=== PATIENT | female | born 1950 | race Caucasian/White ===

== ENCOUNTER 2016-04-19 12:31 | Inpatient (IN) | payer OTHER, MEDICARE ==
[~2016-04-19] VITALS: Ht 165.1 cm; Wt 53.1 kg
[2016-04-19 13:51] LABS: BASOPHIL 0.2 % (0-2); EOSINOPHIL 0 % (0-7); HCT 26.3 % (37.0-47.0); HGB 8.3 g/dl (12.5-16.0); MCH 26.6 pg (25.0-31.0); MCHC 31.6 g/dL (32.0-36.0); MCV 84.3 fL (78.0-100.0); MONOCYTE 10.4 % (0-12); MPV 9.6 fL (6.0-9.5); NEUTROPHIL 83.4 % (41-80); PLT 735 K/uL (150-400); RBC 3.12 M/uL (4.20-5.40); RDW 13.5 % (11.5-14.0)
[2016-04-19 13:59] LABS: INR 3.5 (0.9-1.2); PROTHROMBIN TIME 34.3 SECONDS (11.7-14.0)
[2016-04-19 14:00] LABS: PTT 64.9 SECONDS (23.2-31.4)
[2016-04-19 14:08] LABS: CREATININE 1.6 mg/dL (0.5-1.0)
[2016-04-19 14:09] LABS: WBC 24.4 K/uL (4.0-10.5)
[2016-04-19 14:14] LABS: BILIRUBIN NEGATIVE (NEGATIVE); BLOOD NEGATIVE Ery/uL (NEGATIVE); CLARITY CLEAR (CLEAR); COLOR YELLOW (YELLOW); GLUCOSE (U) NORMAL (NORMAL); KETONE (U) NEGATIVE (NEGATIVE); LEUKOCYTES NEGATIVE Leu/uL (NEGATIVE); NITRITE NEGATIVE (NEGATIVE); PROTEIN NEGATIVE (NEGATIVE); SPECIFIC GRAVITY 1.025 (1.001-1.030)
[2016-04-19 15:32] LABS: LACTIC ACID 4.3 mmol/L (0.5-2.2)
[2016-04-19 22:32] LABS: CKMB 1.23 ng/mL (0.97-4.94); TROPONIN T < 0.010 ng/mL
[2016-04-20 04:17] LABS: TROPONIN T < 0.010 ng/mL
[2016-04-20 06:43] LABS: HCT 27.9 % (37.0-47.0); HGB 8.8 g/dl (12.5-16.0); MCH 26.7 pg (25.0-31.0); MCHC 31.5 g/dL (32.0-36.0); MCV 84.8 fL (78.0-100.0); MPV 9.5 fL (6.0-9.5); RBC 3.29 M/uL (4.20-5.40); RDW 13.7 % (11.5-14.0); WBC 18.7 K/uL (4.0-10.5)
[2016-04-20 06:55] LABS: INR 3.42 (0.9-1.2); PROTHROMBIN TIME 33.7 SECONDS (11.7-14.0)
[2016-04-20 06:56] LABS: PTT 56.4 SECONDS (23.2-31.4)
[2016-04-20 07:00] LABS: ALBUMIN 2.8 g/dL (3.4-4.8); BILIRUBIN - TOTAL 0.3 mg/dL (0.1-1.0); CREATININE 0.9 mg/dL (0.5-1.0); GLOBULIN (CALCULATION) 3.3 g/dL (2.2-4.2); TOTAL PROTEIN 6.1 g/dL (6.4-8.3)
[2016-04-20 11:03] LABS: TROPONIN T < 0.010 ng/mL
[2016-04-21 05:13] LABS: MCH 27.2 pg (25.0-31.0); MCHC 32.2 g/dL (32.0-36.0); MCV 84.4 fL (78.0-100.0); MPV 9.4 fL (6.0-9.5); RBC 3.2 M/uL (4.20-5.40); RDW 13.8 % (11.5-14.0); WBC 14.6 K/uL (4.0-10.5)
[2016-04-21 05:14] LABS: HGB 8.7 g/dl (12.5-16.0)
[2016-04-21 05:21] LABS: INR 2.86 (0.9-1.2); PROTHROMBIN TIME 29.3 SECONDS (11.7-14.0)
[2016-04-21 05:30] LABS: CREATININE 0.8 mg/dL (0.5-1.0); POTASSIUM 4.2 mmol/L (3.5-5.1)
[2016-04-21] MEDS ORDERED: COUMADIN10 MG PO (11:18)
[2016-04-21] MEDS ORDERED: CATAPRES0.1 MG PO (11:19)
[2016-04-21] MEDS ORDERED: FEOSOL325 MG PO (11:19)
[2016-04-21] MEDS ORDERED: HALDOL1 MG PO (11:20)
[2016-04-21] MEDS ORDERED: SYNTHROID125 MCG PO (11:21)
[2016-04-21] MEDS ORDERED: CLARITIN10 MG PO (11:21)
[2016-04-21] MEDS ORDERED: METFORMIN HCL500 MG PO (11:22)
[2016-04-21] MEDS ORDERED: ATIVAN0.5 MG PO (11:22)
[2016-04-21] MEDS ORDERED: ARTANE2 MG PO (11:22)
[2016-04-21] MEDS ORDERED: ACETAMINOPHEN325 MG PO (11:23)
[2016-04-21] MEDS ORDERED: VIBRAMYCIN100 M1 PO (11:24)
[2016-04-21] MEDS ORDERED: AUGMENTIN250 MG PO (11:24)
[2016-08-16] MEDS ORDERED: MAG-OXIDE 400M400 MG PO (11:24)
[2016-08-16] MEDS ORDERED: NIFEREX150 MG PO (11:24)
== END 2016-04-21 11:57 | DRG 871 ==
LOC: FER 12:31 → FICU 17:39 → FTCU 17:39 → FICU 17:45 → FMS 04-20 14:28
PROVIDERS: Emergency Medicine; ADMIT Internal Medicine
PROC: 30233N1 Transfusion of Nonautologous Red Blood Cells into Peripheral Vein, Percutaneous Approach (ICD-10-PCS; principal; 2016-04-19)
DX: A41.9 Sepsis, unspecified organism (principal); J18.9 Pneumonia, unspecified organism; N17.9 Acute kidney failure, unspecified; E87.2 Acidosis; D68.9 Coagulation defect, unspecified; F03.90 Unspecified dementia, unspecified severity, without behavioral disturbance, psychotic disturbance, mood disturbance, and anxiety; R65.20 Severe sepsis without septic shock; Z79.01 Long term (current) use of anticoagulants; I10 Essential (primary) hypertension; Z86.718 Personal history of other venous thrombosis and embolism; E03.9 Hypothyroidism, unspecified; E86.1 Hypovolemia
CPT/HCPCS: 12051; 36415; 36430; 70450; 71010; 72170; 80048; 80053; 81003; 82533; 82550; 82553; 82962; 83605; 84484; 85025; 85610; 85730; 86850; 86900; 86901; 86922; 87040; 87088; 90471; 90715; 93005; 97116; 97163; 97167; 97530; 97530-GP; 97535; C9113; J0692; J2543; J3370; P9016

== ENCOUNTER 2016-06-30 15:00 | Emergency (ER) | payer MEDICARE, OTHER ==
[~2016-06-30 15:00] MED LIST: ACETAMINOPHEN325 MG PO; ARTANE2 MG PO; ATIVAN0.5 MG PO; AUGMENTIN250 MG PO; CATAPRES0.1 MG PO; CLARITIN10 MG PO; COUMADIN10 MG PO; FEOSOL325 MG PO; HALDOL1 MG PO; METFORMIN HCL500 MG PO; SYNTHROID125 MCG PO; VIBRAMYCIN100 M1 PO
[2016-06-30 16:40] LABS: BASOPHIL 0.4 % (0-2); EOSINOPHIL 2.5 % (0-7); HCT 26.8 % (37.0-47.0); HGB 8.5 g/dl (12.5-16.0); LYMPHOCYTE 14.2 % (15-48); MCH 27.6 pg (25.0-31.0); MCHC 31.7 g/dL (32.0-36.0); MONOCYTE 8.5 % (0-12); MPV 9.9 fL (6.0-9.5); NEUTROPHIL 74.4 % (41-80); PLT 801 K/uL (150-400); RBC 3.08 M/uL (4.20-5.40)
[2016-06-30 16:42] LABS: BILIRUBIN NEGATIVE (NEGATIVE); BLOOD NEGATIVE Ery/uL (NEGATIVE); CLARITY CLEAR (CLEAR); COLOR YELLOW (YELLOW); GLUCOSE (U) NORMAL (NORMAL); KETONE (U) NEGATIVE (NEGATIVE); LEUKOCYTES NEGATIVE Leu/uL (NEGATIVE); NITRITE NEGATIVE (NEGATIVE); PROTEIN TRACE (LOW) mg/dL (NEGATIVE); UROBILINOGEN 0.2 mg/dL (0.2-1.0)
[2016-06-30 16:42] LABS: WBC 16.6 K/uL (4.0-10.5)
[2016-06-30 16:48] LABS: MUCOUS TRACE; URINARY WBC RARE
[2016-06-30 16:52] LABS: INR 1.93 (0.9-1.2); PROTHROMBIN TIME 21.5 SECONDS (11.7-14.0)
[2016-06-30 16:53] LABS: PTT 49.9 SECONDS (23.2-31.4)
[2016-06-30 17:00] LABS: CREATININE 0.7 mg/dL (0.5-1.0); POTASSIUM 4.7 mmol/L (3.5-5.1)
[2016-08-16] MEDS ORDERED: NIFEREX150 MG PO (11:24)
[2016-08-16] MEDS ORDERED: MAG-OXIDE 400M400 MG PO (11:24)
== END 2016-06-30 22:38 | disposition home or self-care (01) ==
LOC: FER 15:00
PROVIDERS: Internal Medicine
DX: B37.3 Candidiasis of vulva and vagina (principal); N72 Inflammatory disease of cervix uteri; I10 Essential (primary) hypertension; F03.90 Unspecified dementia, unspecified severity, without behavioral disturbance, psychotic disturbance, mood disturbance, and anxiety; Z79.899 Other long term (current) drug therapy
CPT/HCPCS: 36415; 76830; 80048; 81001; 85025; 85610; 85730; 87210

== ENCOUNTER 2016-07-26 19:07 | Inpatient (IN) | payer MEDICARE, OTHER ==
[~2016-07-26] VITALS: Ht 165.1 cm; Wt 51.7 kg
[2016-07-26 20:53] LABS: BASOPHIL 0.2 % (0-2); EOSINOPHIL 0.9 % (0-7); HCT 28.9 % (37.0-47.0); HGB 9.1 g/dl (12.5-16.0); LYMPHOCYTE 10.2 % (15-48); MCH 27.7 pg (25.0-31.0); MCHC 31.5 g/dL (32.0-36.0); MCV 87.8 fL (78.0-100.0); MONOCYTE 8.2 % (0-12); MPV 9.8 fL (6.0-9.5); NEUTROPHIL 80.5 % (41-80); PLT 805 K/uL (150-400); RBC 3.29 M/uL (4.20-5.40); RDW 14.2 % (11.5-14.0)
[2016-07-26 20:54] LABS: WBC 21.1 K/uL (4.0-10.5)
[2016-07-26 21:00] LABS: INR 1.63 (0.9-1.2); PROTHROMBIN TIME 18.8 SECONDS (11.7-14.0)
[2016-07-26 21:10] LABS: CREATININE 0.8 mg/dL (0.5-1.0); POTASSIUM 4.4 mmol/L (3.5-5.1)
[2016-07-26 22:12] LABS: LACTIC ACID 3.6 mmol/L (0.5-2.2)
[2016-07-26 22:31] LABS: BILIRUBIN NEGATIVE (NEGATIVE); CLARITY CLEAR (CLEAR); COLOR YELLOW (YELLOW); GLUCOSE (U) NORMAL (NORMAL); KETONE (U) TRACE mg/dL (NEGATIVE); PROTEIN TRACE (LOW) mg/dL (NEGATIVE); SPECIFIC GRAVITY 1.015 (1.001-1.030); pH 5.5 (5.0-9.0)
[2016-07-26 22:32] LABS: BLOOD NEGATIVE Ery/uL (NEGATIVE); LEUKOCYTES NEGATIVE Leu/uL (NEGATIVE); NITRITE NEGATIVE (NEGATIVE); UROBILINOGEN 0.2 mg/dL (0.2-1.0)
[2016-07-26 22:37] LABS: SQUAMOUS EPITHELIAL CELLS RARE
[2016-07-26 22:55] LABS: ALBUMIN 2.9 g/dL (3.4-4.8); BILIRUBIN - DIRECT 0.2 mg/dL (0.0-0.2); BILIRUBIN - TOTAL 0.2 mg/dL (0.1-1.0); GLOBULIN (CALCULATION) 4.3 g/dL (2.2-4.2); TOTAL PROTEIN 7.2 g/dL (6.4-8.3)
[2016-07-27 06:18] LABS: INR 1.72 (0.9-1.2); PROTHROMBIN TIME 19.6 SECONDS (11.7-14.0); PTT 36.4 SECONDS (23.2-31.4)
[2016-07-27 06:40] LABS: BASOPHIL 0.2 % (0-2); HCT 26.6 % (37.0-47.0); HGB 8.4 g/dl (12.5-16.0); LYMPHOCYTE 12.7 % (15-48); MCHC 31.6 g/dL (32.0-36.0); MCV 88.7 fL (78.0-100.0); MONOCYTE 9.1 % (0-12); MPV 10.8 fL (6.0-9.5); PLT 549 K/uL (150-400); RDW 14.1 % (11.5-14.0)
[2016-07-27 06:42] LABS: WBC 16.6 K/uL (4.0-10.5)
[2016-07-27 07:00] LABS: TROPONIN T < 0.010 ng/mL
[2016-07-27 10:49] LABS: TROPONIN T < 0.010 ng/mL
[2016-07-27 16:58] LABS: TROPONIN T < 0.010 ng/mL
[2016-07-28 06:46] LABS: ALBUMIN 2.3 g/dL (3.4-4.8); CREATININE 0.9 mg/dL (0.5-1.0); GLOBULIN (CALCULATION) 4.4 g/dL (2.2-4.2); POTASSIUM 3.8 mmol/L (3.5-5.1); TOTAL PROTEIN 6.7 g/dL (6.4-8.3)
[2016-07-28 06:51] LABS: BILIRUBIN - TOTAL 0.3 mg/dL (0.1-1.0)
[2016-07-28 09:42] LABS: HCT 29.4 % (37.0-47.0); HGB 9.3 g/dl (12.5-16.0); MCH 27.8 pg (25.0-31.0); MCHC 31.6 g/dL (32.0-36.0); MPV 9.9 fL (6.0-9.5); RBC 3.34 M/uL (4.20-5.40); RDW 14.1 % (11.5-14.0)
[2016-07-28 09:43] LABS: WBC 23.9 K/uL (4.0-10.5)
[2016-07-28 09:49] LABS: INR 2.52 (0.9-1.2); PROTHROMBIN TIME 26.5 SECONDS (11.7-14.0)
--- NOTE | 2016-07-28 21:40 | NUR ---
TO CT SCAN, UNHOOKED FROM IV FLUIDS, IV SITE INTACT NO REDNESS OR SWELLING
--- NOTE | 2016-07-28 23:33 | NUR ---
CT UNABLE TO DO CONTRAST CT DUE TO IV LEAKING, ONE WAS DONE WITHOUT, WHEN PATIENT RETURNED TO ROOM AND THIS INFO GIVEN TO ME I CHECKED IV SITE, RECONNECT EXTENSION, STAT LOCK APPLIED, IV WITH GOOD BLOOD RETURN AND FLUSHED WELL, NO REDNESS, SWELLING OR LEAKING NOTED. CT CALLED FOR RECHECK BUT STATED THEY DON'T FEEL CAN GET ANY BETTER IMAGE DUE TO INABILITY TO REMAIN IN POSITION DUE TO CURLING UP INTO POSITION ON SIDE AND WILL NOT FOLLOW COMMANDS TO REMAIN IN POSITION, WAS ATTEMPT TO STABILIZE IN POSITION BUT NOT ABLE TO FIT INTO CT SCAN DUE TO WILL NOT LEAVE KNEES DOWN AND UNABLE TO POSITION AND KEEP KNEES DOWN WITH ANY SOURCE
[2016-07-29 05:23] LABS: HCT 25.1 % (37.0-47.0); MCH 28.2 pg (25.0-31.0); MCHC 31.9 g/dL (32.0-36.0); MCV 88.4 fL (78.0-100.0); MPV 10.1 fL (6.0-9.5); RBC 2.84 M/uL (4.20-5.40); RDW 14.1 % (11.5-14.0); WBC 18.3 K/uL (4.0-10.5)
[2016-07-29 05:34] LABS: INR 2.97 (0.9-1.2); PROTHROMBIN TIME 30.2 SECONDS (11.7-14.0)
[2016-07-29 05:44] LABS: ALBUMIN 2.3 g/dL (3.4-4.8); CREATININE 0.7 mg/dL (0.5-1.0); GLOBULIN (CALCULATION) 3.1 g/dL (2.2-4.2); POTASSIUM 4.2 mmol/L (3.5-5.1); TOTAL PROTEIN 5.4 g/dL (6.4-8.3)
[2016-07-29 06:07] LABS: BILIRUBIN - TOTAL 0.2 mg/dL (0.1-1.0)
[2016-07-30 06:22] LABS: HCT 25.1 % (37.0-47.0); MCH 27.6 pg (25.0-31.0); MCHC 31.5 g/dL (32.0-36.0); MCV 87.8 fL (78.0-100.0); MPV 10.6 fL (6.0-9.5); RBC 2.86 M/uL (4.20-5.40); RDW 13.7 % (11.5-14.0); WBC 12.9 K/uL (4.0-10.5)
[2016-07-30 06:23] LABS: HGB 7.9 g/dl (12.5-16.0)
[2016-07-30 06:37] LABS: ALBUMIN 2.2 g/dL (3.4-4.8); BILIRUBIN - TOTAL 0.2 mg/dL (0.1-1.0); CREATININE 0.7 mg/dL (0.5-1.0); GLOBULIN (CALCULATION) 3.7 g/dL (2.2-4.2); POTASSIUM 3.6 mmol/L (3.5-5.1); TOTAL PROTEIN 5.9 g/dL (6.4-8.3)
[2016-07-30 08:25] LABS: RETICULOCYTE COUNT 0.9 % (1.0-2.0)
[2016-07-30 08:46] LABS: FT4 (FREE T4) 1.03 ng/dL (0.93-1.70); TSH (THYROID STIM HORMONE) 12.26 uIU/mL (0.270-4.200)
[2016-07-30 08:57] LABS: FOLIC ACID (SERUM) 5.8 ng/mL (5.6-45.8)
[2016-07-31 05:35] LABS: BASOPHIL 0.2 % (0-2); EOSINOPHIL 1.8 % (0-7); HCT 24.2 % (37.0-47.0); LYMPHOCYTE 16.6 % (15-48); MCH 28.1 pg (25.0-31.0); MCHC 32.6 g/dL (32.0-36.0); MCV 86.1 fL (78.0-100.0); MONOCYTE 7.9 % (0-12); MPV 10.2 fL (6.0-9.5); NEUTROPHIL 73.5 % (41-80); PLT 623 K/uL (150-400); RDW 13.4 % (11.5-14.0)
[2016-07-31 05:43] LABS: HGB 7.9 g/dl (12.5-16.0); RBC 2.81 M/uL (4.20-5.40); WBC 12.7 K/uL (4.0-10.5)
[2016-08-01 04:51] LABS: HCT 25.4 % (37.0-47.0); HGB 8.2 g/dl (12.5-16.0); MCH 27.6 pg (25.0-31.0); MCHC 32.3 g/dL (32.0-36.0); MCV 85.5 fL (78.0-100.0); MPV 10.2 fL (6.0-9.5); RBC 2.97 M/uL (4.20-5.40); RDW 13.2 % (11.5-14.0); WBC 12.8 K/uL (4.0-10.5)
[2016-08-02] MEDS ORDERED: HALDOL1 MG PO (12:31)
[2016-08-02] MEDS ORDERED: LISINOPRIL-HCT1 EAC2 PO (12:31)
[2016-08-02] MEDS ORDERED: VITAMIN D2000 UNI1 PO (12:32)
[2016-08-02] MEDS ORDERED: COUMADIN1 MG PO (12:33)
[2016-08-02] MEDS ORDERED: COUMADIN4 MG PO (12:33)
[2016-08-02] MEDS ORDERED: MIRTAZAPINE7.5 MG PO (12:33)
[2016-08-16] MEDS ORDERED: NIFEREX150 MG PO (11:24)
[2016-08-16] MEDS ORDERED: MAG-OXIDE 400M400 MG PO (11:24)
== END 2016-08-02 14:19 | DRG 871 ==
LOC: FER 19:07 → FMS 23:00
PROVIDERS: Emergency Medicine; Internal Medicine; Nurse Practitioner; ADMIT Internal Medicine Nephrology
DX: A41.9 Sepsis, unspecified organism (principal); J18.9 Pneumonia, unspecified organism; C78.00 Secondary malignant neoplasm of unspecified lung; C94.6 Myelodysplastic disease, not elsewhere classified; R13.10 Dysphagia, unspecified; N13.30 Unspecified hydronephrosis; R65.20 Severe sepsis without septic shock; I10 Essential (primary) hypertension; E03.9 Hypothyroidism, unspecified; E11.9 Type 2 diabetes mellitus without complications; F03.90 Unspecified dementia, unspecified severity, without behavioral disturbance, psychotic disturbance, mood disturbance, and anxiety; S01.81XA Laceration without foreign body of other part of head, initial encounter; W05.0XXA Fall from non-moving wheelchair, initial encounter; Y93.89 Activity, other specified; Y92.129 Unspecified place in nursing home as the place of occurrence of the external cause; E78.5 Hyperlipidemia, unspecified; F31.9 Bipolar disorder, unspecified; D50.9 Iron deficiency anemia, unspecified; N88.8 Other specified noninflammatory disorders of cervix uteri; K59.00 Constipation, unspecified; Z79.899 Other long term (current) drug therapy; Z86.718 Personal history of other venous thrombosis and embolism; Z79.01 Long term (current) use of anticoagulants
CPT/HCPCS: 36415; 70450; 71010; 71250; 72125; 80048; 80053; 80076; 80202; 81001; 82378; 82550; 82553; 82607; 82728; 82746; 82962; 83540; 83550; 83605; 84145; 84439; 84443; 84481; 84484; 85025; 85044; 85610; 85730; 86304; 87040; 87088; 92526; 93005; J2185; J2543